=== PATIENT | female | born 1945 | race Caucasian/White ===

== ENCOUNTER 2018-05-09 15:41 | Outpatient (REF) | payer MEDICARE, SELFPAY | END 2018-05-09 16:01 | LOC: NCHCN 15:41 | PROVIDERS: PCP Nurse Practitioner Family; Visit Provider Nurse Practitioner Family | DX: R30.0 Dysuria (principal) | CPT/HCPCS: 87086 ==

== ENCOUNTER 2018-06-13 17:13 | Outpatient (REF) | payer MEDICARE, SELFPAY ==
[2018-06-17 09:44] LABS: Cyclic Citrullinated Peptide <2.5 U/mL (<5.0)
[2018-06-17 10:19] LABS: Rheumatoid Factor 28 IU/mL (<12.5)
[2018-06-17 14:08] LABS: ANA Interpretation Negative (NEGAT)
== END 2018-06-13 17:33 ==
LOC: NCHCN 17:13
PROVIDERS: PCP Nurse Practitioner Family; Visit Provider Nurse Practitioner Family
DX: R05 Cough (principal); J44.9 Chronic obstructive pulmonary disease, unspecified; J01.90 Acute sinusitis, unspecified; G89.29 Other chronic pain; M19.90 Unspecified osteoarthritis, unspecified site
CPT/HCPCS: 86200; 86038; 86431

== ENCOUNTER → 2018-06-27 01:00 | Outpatient (CLI) | payer MEDICARE, SELFPAY ==
--- NOTE | 2018-06-27 11:07 | DI.RAD_ITS ---
SYMPTOMS/DIAGNOSIS: DEGENERATIVE JOINT DISEASE, M19.90 LEFT KNEE: A total knee prothesis is in place. No abnormal bony lucencies are seen. No joint effusion is visible. IMPRESSION: Unremarkable knee prosthesis. RIGHT KNEE: Comparison is made with [id number]. A right knee prosthesis is again noted. There is a long stem tibial component as well as wires and screw near the tibial tubercle. The patella is unchanged in appearance which appears small and somewhat inferiorly positioned. IMPRESSION: No change in knee prosthesis. No acute bony abnormalities are identified. ARTHRITIS SERIES: RIGHT HAND: There are severe degenerative changes of the radial carpal joint as well as first carpal metacarpal joint. Degenerative changes are seen to a lesser extent of the interphalangeal joints of the fingers and intercarpal region. No bony erosions are seen. 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 LEFT HAND: There are severe degenerative changes of the first carpal metacarpal joint. There is prominent periarticular spurring. Mild degenerative changes are seen elsewhere in the carpal region and interphalangeal joints. There are degenerative changes at the pisiform triquetral joint.
== END ==
PROVIDERS: PCP Nurse Practitioner Family; Visit Provider Nurse Practitioner Family
DX: M19.041 Primary osteoarthritis, right hand (principal); M19.042 Primary osteoarthritis, left hand; M18.11 Unilateral primary osteoarthritis of first carpometacarpal joint, right hand; M18.12 Unilateral primary osteoarthritis of first carpometacarpal joint, left hand; Z96.653 Presence of artificial knee joint, bilateral
CPT/HCPCS: 73562; 73120

== ENCOUNTER 2018-07-23 16:11 | Outpatient (REF) | payer MEDICARE, SELFPAY ==
[2018-07-23 21:58] LABS: Abs Immature Grans 0.01 k/cumm (0.0-0.09); Absolute Basophil Count 0.03 k/cumm (0.0-0.2); Absolute Eosinophil Count 0.24 k/cumm (0.0-0.7); Absolute Lymphocyte Count 2.09 k/cumm (1.2-3.4); Absolute Monocyte Count 0.67 k/cumm (0.11-0.7); Absolute Neutrophil Count 4.57 k/cumm (1.2-6.7); Basophils % 0.4; Eosinophils % 3.2; HCT 46.9 % (36.0-46.0); Immature Grans % 0.1; Lymphocytes % 27.5; Mean Corpuscular Hemoglobin 30.4 pg (27.0-33.0); Mean Corpuscular Volume 94.9 fL (80-95); Mean Platelet Volume 10.1 fL (8.0-11.0); Monocytes % 8.8; Platelet Count 288 x1000/uL (130-400); RBC 4.94 m/cumm (4.00-5.20); White Blood Cell Count 7.61 k/cumm (4.4-10.8)
[2018-07-23 22:45] LABS: ALT 28 U/L (12-78); AST 27 U/L (15-37); Alkaline Phosphatase 79 U/L (46-116); Anion Gap 10.1 mmol/L (3-11); BUN 22 mg/dL (7-18); Bilirubin, Total 0.5 mg/dL (0.2-1.0); CO2 28.9 mmol/L (21.0-32.0); Calcium 9.8 mg/dL (8.5-10.1); Chloride 103 mmol/L (98-107); Cholesterol 241 mg/dL (50-200); Glucose 115 mg/dL (70-100); HDL Cholesterol 39 mg/dL (40-60); LDL CHOLESTEROL 157 mg/dL (<100); Potassium 4.4 mmol/L (3.5-5.1); Sodium 142 mmol/L (136-145); TSH 2.63 uIU/mL (0.358-3.74); Total Protein 7.2 g/dL (6.4-8.2); Triglyceride 242 mg/dL (30-150); Vitamin B12 246 pg/mL (193-986)
== END 2018-07-23 16:31 ==
LOC: NCHCN 16:11
PROVIDERS: PCP Nurse Practitioner Family; Visit Provider Nurse Practitioner Family
DX: E03.9 Hypothyroidism, unspecified (principal); I10 Essential (primary) hypertension; F03.90 Unspecified dementia, unspecified severity, without behavioral disturbance, psychotic disturbance, mood disturbance, and anxiety; G89.29 Other chronic pain; Z79.891 Long term (current) use of opiate analgesic; M19.90 Unspecified osteoarthritis, unspecified site
CPT/HCPCS: 80053; 80061; 83721; 82607; 84443; 85025

== ENCOUNTER 2018-11-12 17:59 | Outpatient (REF) | payer MEDICARE, SELFPAY ==
[2018-11-12 21:54] LABS: ALT 28 U/L (12-78); AST 20 U/L (15-37); HDL Cholesterol 39 mg/dL (40-60); LDL CHOLESTEROL 122 mg/dL (<100)
[2018-11-12 22:09] LABS: Creatine Kinase 90 U/L (26-192)
== END 2018-11-12 18:19 ==
LOC: NCHCN 17:59
PROVIDERS: PCP Nurse Practitioner Family; Visit Provider Nurse Practitioner Family
DX: E78.5 Hyperlipidemia, unspecified (principal); I10 Essential (primary) hypertension; R20.2 Paresthesia of skin; M79.7 Fibromyalgia; G89.29 Other chronic pain; Z79.891 Long term (current) use of opiate analgesic
CPT/HCPCS: 82550; 83721; 83718; 84450; 84460

== ENCOUNTER → 2018-11-19 13:45 | Outpatient (BNVA) | payer MEDICARE, SELFPAY | PROVIDERS: PCP Nurse Practitioner Family; Referring Provider Nurse Practitioner Family; Visit Provider Nurse Practitioner Adult Health | DX: G56.03 Carpal tunnel syndrome, bilateral upper limbs (principal); G56.23 Lesion of ulnar nerve, bilateral upper limbs; J44.9 Chronic obstructive pulmonary disease, unspecified; F17.210 Nicotine dependence, cigarettes, uncomplicated; I10 Essential (primary) hypertension | CPT/HCPCS: 95911; 99203; 99214; 95886 ==

== ENCOUNTER 2018-12-19 02:31 | Outpatient (CLI) | payer MEDICARE, SELFPAY ==
--- NOTE | 2018-12-27 11:59 | HOLTER_ITS ---
HOLTER MONITOR DATE OF DICTATION December 27, 2018 INDICATION Palpitations. Baseline is sinus rhythm. Average heart rate 63 beats per minute. Max heart rate 109 beats per minute. Minimum heart rate 44 beats per minute. Rare isolated ventricular ectopy. No nonsustained VT. Rare predominantly isolated atrial ectopy. 9 short bursts of SVT. The longest lasting 25 beats. No significant pauses or gelacio arrhythmias. No diary entries. Overall sinus rhythm with rare atrial and ventricular ectopy with some short bursts of SVT. The patient was asymptomatic. Nba Gonzalez M.D. CASSIDY/lionel T - 12/27/2018
== END 2018-12-19 02:51 ==
PROVIDERS: PCP Nurse Practitioner Family; Visit Provider Nurse Practitioner Family
DX: R00.2 Palpitations (principal); I47.1 Supraventricular tachycardia
CPT/HCPCS: 93225

== ENCOUNTER 2018-12-26 12:02 | Outpatient (CLI) | payer MEDICARE, SELFPAY | END 2018-12-26 12:22 | PROVIDERS: PCP Nurse Practitioner Family; Visit Provider Nurse Practitioner Family | DX: R00.2 Palpitations (principal); I47.1 Supraventricular tachycardia | CPT/HCPCS: 93226 ==

== ENCOUNTER 2018-12-27 11:20 | Outpatient (CLI) | payer MEDICARE, SELFPAY | END 2018-12-27 11:40 | PROVIDERS: PCP Nurse Practitioner Family; Referring Provider Nurse Practitioner Family; Visit Provider Internal Medicine Cardiovascular Disease | DX: R00.2 Palpitations (principal); I47.1 Supraventricular tachycardia | CPT/HCPCS: 93227 ==